=== PATIENT | female | born 1975 | race Caucasian/White ===

== ENCOUNTER 2018-03-11 22:45 | Emergency (ER) | payer BC ==
[2018-03-11] MEDS ORDERED: HYDROCODONE/APAP 5/325 MG TAB ONE (23:56)
--- NOTE | 2018-03-12 01:25 | ER ---
Nurse's Notes [facility] Name: Kimmy Hernandez Age: 42 yrs Sex: Female : 1975 Arrival Date: 03/11/2018 Time: 22:45 Bed 15 Private MD: Diagnosis: Achilles tendinitis, right leg Presentation: 03/11 22:59 Presenting complaint: Patient states: "I fell down 4 steps of stairs this morning and I bs1 heard my right ankle pop, and my lower back hurts.". Transition of care: patient was not received from another setting of care. Onset of symptoms was March 11, 2018. Risk Assessment: Do you want to hurt yourself or someone else? Patient reports no desire to harm self or others. Initial Sepsis Screen: Does the patient meet any 2 criteria? No. Patient's initial sepsis screen is negative. Does the patient have a suspected source of infection? No. Patient's initial sepsis screen is negative. Care prior to arrival: None. 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 - Social history:: Smoking status: Patient/guardian denies using tobacco. - Ebola Screening: : Patient negative for fever greater than or equal to 101.5 degrees Fahrenheit, and additional compatible Ebola Virus Disease symptoms Patient denies exposure to infectious person. - Family history:: not pertinent. - Hospitalizations: : No recent hospitalization is reported. - History obtained from: daughter. Screenin:34 Abuse screen: Denies threats or abuse. Denies injuries from another. Nutritional bs1 screening: No deficits noted. Tuberculosis screening: No symptoms or risk factors identified. Fall Risk None identified. Assessment: 23:00 General: Appears in no apparent distress. uncomfortable, Behavior is calm, cooperative, bs1 appropriate for age. Pain: Complains of pain in right ankle, lower back. Neuro: Level of Consciousness is awake, alert, obeys commands, Oriented to person, place, time, situation, Appropriate for age. Cardiovascular: Denies chest pain, shortness of breath, Heart tones S1 S2 present Capillary refill < 3 seconds Patient's skin is warm and dry. Respiratory: Airway is patent Trachea midline Respiratory effort is even, unlabored, Respiratory pattern is regular, symmetrical, Breath sounds are clear bilaterally. GI: No signs and/or symptoms were reported involving the gastrointestinal system. : No signs and/or symptoms were reported regarding the genitourinary system. EENT: No signs and/or symptoms were reported regarding the EENT system. Derm: Skin is intact, Skin is pink, warm \\T\\ dry. normal. Musculoskeletal: Circulation, motion, and sensation intact. Capillary refill < 3 seconds, Range of motion: limited in right foot/ankle Reports pain in right fot/ankle/lower back. 03/12 00:30 Reassessment: Patient appears in no apparent distress at this time. Patient and/or bs1 family updated on plan of care and expected duration. Pain level reassessed. Patient is alert, oriented x 3, equal unlabored respirations, skin warm/dry/pink. Updated patient on POC/pending xray results. 01:40 Reassessment: Patient appears in no apparent distress at this time. Patient and/or bs1 family updated on plan of care and expected duration. Pain level reassessed. Patient is alert, oriented x 3, equal unlabored respirations, skin warm/dry/pink. Informed patient of discharge instructions and to follow up with ortho. Patient states understanding of DC instructions. Neurovascular checks wnl post splint Patient states symptoms have improved. Vital Signs: 03/11 23:02 BP 145 / 77; Pulse 68; Resp 17; Temp 99.2(O); Pulse Ox 98% on R/A; Weight 101.15 kg; bs1 Height 5 ft. 3 in. (160.02 cm); Pain 510; 03/12 00:00 BP 125 / 64; Pulse 88; Resp 16 S; Pulse Ox 96% on R/A; bs1 00:45 BP 123 / 81; Pulse 81; Resp 16 S; Pulse Ox 96% on R/A; bs1 01:40 BP 125 / 78; Pulse 76; Resp 16; Temp 98; Pulse Ox 100% on R/A; Pain 3/10; bs1 03/11 23:02 Body Mass Index 39.50 (101.15 kg, 160.02 cm) bs1 ED Course: 03/11 22:45 Patient arrived in ED. 22:53 Merlene Rob, RN is Primary Nurse. bs1 23:01 Triage completed. bs1 23:05 Tri Bryan FNP is PHCP. kav 23:05 Triston Beck MD is Attending Physician. kav 23:27 X-ray completed. Portable x-ray completed in exam room. Patient tolerated procedure kw well. 23:28 Ankle Right 3 View XRAY In Process Unspecified. EDMS 23:33 Patient has correct armband on for positive identification. Bed in low position. Call bs1 light in reach. Side rails up X 1. Pulse ox on. NIBP on. 23:34 Arm band placed on right wrist. bs1 23:34 No provider procedures requiring assistance completed. bs1 03/12 01:32 Crutch training done. Orthoglass splint: Posterior long leg splint applied on right leg.oe 01:46 Patient did not have IV access during this emergency room visit. bs1 Administered Medications: 03/11 23:53 Drug: [place] 5 mg-325 mg 1 tabs Route: PO; bs1 03/12 00:51 Follow up: Response: No adverse reaction bs1 Outcome: 01:24 Discharge ordered by . ka 01:45 Discharged to home via wheelchair, with crutches. bs1 01:45 Condition: stable 01:45 Discharge instructions given to patient, Instructed on discharge instructions, follow up and referral plans. medication usage, Demonstrated understanding of instructions, follow-up care, medications, Prescriptions given X 2. 01:49 Patient left the ED. bs1 Signatures: Dispatcher [employer] EDGA Tri Bryan FNP GLASS BULB SILVERERBrittni Small Kimberlee kw Espinosa, [place] Merlene Rob, RN RN bs1 Corrections: (The following items were deleted from the chart) 01:48 01:30 Reassessment: Patient appears in no apparent distress at this time. Patient bs1 and/or family updated on plan of care and expected duration. Pain level reassessed. Patient is alert, oriented x 3, equal unlabored respirations, skin warm/dry/pink. Informed patient of discharge instructions and to follow up with ortho. Patient states understanding of DC instructions Patient states symptoms have improved. bs1
--- NOTE | 2018-03-12 01:25 | EDPHYS ---
Physician Documentation [facility] Name: Kimmy Hernandez Age: 42 yrs Sex: Female : 1975 Arrival Date: 03/11/2018 Time: 22:45 Bed 15 Private MD: ED Physician Triston Beck HPI: 03/11 23:05 This 42 yrs old Female presents to ER via Wheelchair with complaints of Ankle kav Injury, Back Injury. 23:49 The patient presents with pain, that is acute. The complaints affect the right ankle, kav right Achilles. Onset: The symptoms/episode began/occurred acutely, this morning. Context: The mechanism of injury involved eversion of the affected ankle. The patient is unable to bear weight. The patient is not able to ambulate. Associated signs and symptoms: Pertinent positives: swelling, of the right Achilles. Modifying factors: The symptoms are alleviated by elevation of extremity, ice packs, OTC meds, the symptoms are aggravated by movement. Severity of symptoms: At their worst the symptoms were moderate, just prior to arrival. The patient has not experienced similar symptoms in the past. The patient has not recently seen a physician. Patient reports tripping over cat and mis-step down 4 stairs steps. She reports that she heard the right ankle pop.. 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 - Social history:: Smoking status: Patient/guardian denies using tobacco. - Ebola Screening: : Patient negative for fever greater than or equal to 101.5 degrees Fahrenheit, and additional compatible Ebola Virus Disease symptoms Patient denies exposure to infectious person. - Family history:: not pertinent. - Hospitalizations: : No recent hospitalization is reported. - History obtained from: daughter. ROS: 23:52 Constitutional: Negative for fever, chills, and weight loss, Eyes: Negative for injury, kav pain, redness, and discharge, ENT: Negative for injury, pain, and discharge, Neck: Negative for injury, pain, and swelling, Cardiovascular: Negative for chest pain, palpitations, and edema, Respiratory: Negative for shortness of breath, cough, wheezing, and pleuritic chest pain, Abdomen/GI: Negative for abdominal pain, nausea, vomiting, diarrhea, and constipation, Back: Negative for injury and pain, : Negative for injury, bleeding, discharge, and swelling, Skin: Negative for injury, rash, and discoloration, Neuro: Negative for headache, weakness, numbness, tingling, and seizure, Psych: Negative for depression, anxiety, suicide ideation, homicidal ideation, and hallucinations, Allergy/Immunology: Negative for hives, rash, and allergies, Endocrine: Negative for neck swelling, polydipsia, polyuria, polyphagia, and marked weight changes, Hematologic/Lymphatic: Negative for swollen nodes, abnormal bleeding, and unusual bruising. 23:52 MS/extremity: Positive for pain, swelling, of the right Achilles. Exam: 23:52 Constitutional: This is a well developed, well nourished patient who is awake, alert, kav and in no acute distress. Head/Face: Normocephalic, atraumatic. Eyes: Pupils equal round and reactive to light, extra-ocular motions intact. Lids and lashes normal. Conjunctiva and sclera are non-icteric and not injected. Cornea within normal limits. Periorbital areas with no swelling, redness, or edema. ENT: Nares patent. No nasal discharge, no septal abnormalities noted. Tympanic membranes are normal and external auditory canals are clear. Oropharynx with no redness, swelling, or masses, exudates, or evidence of obstruction, uvula midline. Mucous membranes moist. Neck: Trachea midline, no thyromegaly or masses palpated, and no cervical lymphadenopathy. Supple, full range of motion without nuchal rigidity, or vertebral point tenderness. No Meningismus. Chest/axilla: Normal chest wall appearance and motion. Nontender with no deformity. No lesions are appreciated. Cardiovascular: Regular rate and rhythm with a normal S1 and S2. No gallops, murmurs, or rubs. Normal PMI, no JVD. No pulse deficits. Respiratory: Lungs have equal breath sounds bilaterally, clear to auscultation and percussion. No rales, rhonchi or wheezes noted. No increased work of breathing, no retractions or nasal flaring. Abdomen/GI: Soft, non-tender, with normal bowel sounds. No distension or tympany. No guarding or rebound. No evidence of tenderness throughout. Back: No spinal tenderness. No costovertebral tenderness. Full range of motion. Skin: Warm, dry with normal turgor. Normal color with no rashes, no lesions, and no evidence of cellulitis. Neuro: Awake and alert, GCS 15, oriented to person, place, time, and situation. Cranial nerves II-XII grossly intact. Motor strength 5/5 in all extremities. Sensory grossly intact. Cerebellar exam normal. Normal gait. Psych: Awake, alert, with orientation to person, place and time. Behavior, mood, and affect are within normal limits. 23:52 Musculoskeletal/extremity: Extremities: noted in the right Achilles: abrasion, pain, ROM: limited active range of motion, in the right Achilles, limited passive range of motion, in the , Circulation is intact in all extremities. Pulses: noted to be 2+ in the right posterior tibial artery and right dorsalis pedis artery, Sensation intact. Joints: the right ankle displays limited range of motion, pain at rest, Tendon exam: specific tendon testing normal through active and passive range of motion Vital Signs: 23:02 BP 145 / 77; Pulse 68; Resp 17; Temp 99.2(O); Pulse Ox 98% on R/A; Weight 101.15 kg; bs1 Height 5 ft. 3 in. (160.02 cm); Pain 5/10; 08 00:00 BP 125 / 64; Pulse 88; Resp 16 S; Pulse Ox 96% on R/A; bs1 00:45 BP 123 / 81; Pulse 81; Resp 16 S; Pulse Ox 96% on R/A; bs1 01:40 BP 125 / 78; Pulse 76; Resp 16; Temp 98; Pulse Ox 100% on R/A; Pain 3/10; bs1 03/11 23:02 Body Mass Index 39.50 (101.15 kg, 160.02 cm) bs1 MDM: 03/11 23:52 Data reviewed: vital signs, nurses notes, radiologic studies, plain films. [facility] 23:58 Medical screening is not applicable. [facility] 03/11 23:06 Order name: Ankle Right 3 View XRAY [facility] 03/11 23:58 Order name: Balwinder wrap-joint; Complete Time: 01:48 [facility] 03/11 23:58 Order name: Crutches; Complete Time: 01:48 kav 03/12 01:23 Order name: Posterior Leg Splint; Complete Time: 01:48 kav Administered Medications: 23:53 Drug: [place] 5 mg-325 mg 1 tabs Route: PO; bs1 03/12 00:51 Follow up: Response: No adverse reaction bs1 Disposition: 02:15 Co-signature as Attending Physician, Triston Beck MD. pkl Disposition: 03/12/18 01:24 Discharged to Home. Impression: Achilles tendinitis, right leg. - Condition is Stable. - Discharge Instructions: Achilles Tendinitis, Heat Therapy, [id number], Form - Excuse from Work, School, or Physical Activity. - Prescriptions for Tylenol- Codeine #3 300-30 mg Oral Tablet - take 2 tablets by ORAL route every 6 hours As needed; 20 tablet. Ibuprofen 800 mg Oral Tablet - take 1 tablet by ORAL route every 8 hours As needed take with food; 30 tablet. - Work release form, Medication Reconciliation Form, Thank You Letter form. - Follow up: Private Physician; When: 5 - 6 days; Reason: If symptoms return, Recheck today's complaints, Continuance of care, Re-evaluation by your physician. - Problem is new. - Symptoms have improved. Signatures: Dispatcher [employer] EDTriston Vela MD MD pkl Vern, Katherine, RESIDENTIAL SUPPORT SPECIALIST RESIDENTIAL SUPPORT SPECIALIST Merlene Bryant, RN RN bs1 Corrections: (The following items were deleted from the chart) 01:49 01:24 03/12/2018 01:24 Discharged to Home. Impression: Achilles tendinitis, right leg. bs1 Condition is Stable. Prescriptions for Tylenol-Codeine #3 300-30 mg Oral Tablet - take 2 tablets by ORAL route every 6 hours As needed; 20 tablet. and Forms are Work release form, Medication Reconciliation Form, Thank You Letter, Antibiotic Education, Prescription Opioid Use. Follow up: Private Physician; When: 5 - 6 days; Reason: If symptoms return, Recheck today's complaints, Continuance of care, Re-evaluation by your physician. Problem is new. Symptoms have improved. kav
--- NOTE | 2018-03-12 08:02 | RAD REPORT ---
EXAM DESCRIPTION: RAD - Ankle Right 3 View - 03/11/2018 11:28 pm CLINICAL HISTORY: Right ankle pain status post fall FINDINGS: Small bony density lies along the distal aspect of the medial malleolus. This may represen t an acute avulsed fracture fragment, chronic fragment or an ossicle. Clinical correlation is needed see if patient has point tenderness in this region to suggest an acute fracture. No dislocation is seen
== END 2018-03-12 01:49 | disposition home or self-care (01) ==
LOC: ER 22:45
DX: M76.61 Achilles tendinitis, right leg (principal); W18.09XA Striking against other object with subsequent fall, initial encounter; Y93.89 Activity, other specified; Y92.009 Unspecified place in unspecified non-institutional (private) residence as the place of occurrence of the external cause
CPT/HCPCS: 99284

== ENCOUNTER 2018-08-19 12:29 | Emergency (ER) | payer BC ==
--- NOTE | 2018-08-19 14:31 | ER ---
Nurse's Notes [facility] Name: Kimmy Hernandez Age: 43 yrs Sex: Female : 1975 Arrival Date: 08/19/2018 Time: 12:31 Bed 14 Private MD: Diagnosis: Muscle spasm of back Presentation: 08/19 12:34 Presenting complaint: Right sided neck pain that radiates to right shoulder and right hb mid back x 2 days. Transition of care: patient was not received from another setting of care. Onset of symptoms was August 18, 2018. Risk Assessment: Do you want to hurt yourself or someone else? Patient reports no desire to harm self or others. Initial Sepsis Screen: Does the patient meet any 2 criteria? No. Patient's initial sepsis screen is negative. Does the patient have a suspected source of infection? No. Patient's initial sepsis screen is negative. Care prior to arrival: None. 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 - Social history:: Smoking status: Patient/guardian denies using tobacco. - Ebola Screening: : No symptoms or risks identified at this time. Screenin:40 Abuse screen: Denies threats or abuse. Nutritional screening: No deficits noted. rb1 Tuberculosis screening: No symptoms or risk factors identified. Fall Risk None identified. Assessment: 13:40 General: Appears in no apparent distress. comfortable, Behavior is calm, cooperative, rb1 Denies fever. Pain: Complains of pain in back of neck Pain radiates to right scapular area Pain currently is 7 out of 10 on a pain scale. Pain began 2-3 days ago. Neuro: Level of Consciousness is awake, alert, obeys commands, Oriented to person, place, time, situation, Denies numbness. Neuro: Reports dizziness. Cardiovascular: Capillary refill < 3 seconds is brisk in bilateral fingers. Respiratory: Airway is patent Respiratory effort is even, unlabored, Respiratory pattern is regular, symmetrical. GI: No signs and/or symptoms were reported involving the gastrointestinal system. : No signs and/or symptoms were reported regarding the genitourinary system. Derm: Skin is pink, warm \T\ dry. Vital Signs: 12:37 BP 134 / 86; Pulse 82; Resp 18; Temp 98.2; Pulse Ox 100% on R/A; Pain 7/10; hb 13:30 BP 136 / 94; Pulse 73; Resp 17; Pulse Ox 100% on R/A; rb1 14:30 BP 137 / 92; Pulse 70; Resp 19; Pulse Ox 100% on R/A; rb1 ED Course: 12:31 Patient arrived in ED. rg4 12:37 Triage completed. hb 12:37 Arm band placed on right wrist. EKG completed in triage. Results shown to MD. hb 13:40 Patient has correct armband on for positive identification. Bed in low position. Call rb1 light in reach. Side rails up X 1. Pulse ox on. NIBP on. 13:[address] PA is PHCP. [facility] 13:41 Willian Roland MD is Attending Physician. [facility] 13:46 Chloé Levy, RN is Primary Nurse. rb1 15:00 No provider procedures requiring assistance completed. Patient did not have IV access rb1 during this emergency room visit. Administered Medications: No medications were administered Outcome: 14:31 Discharge ordered by MD. [facility] 15:00 Discharged to home ambulatory. rb1 15:00 Condition: stable 15:00 Discharge instructions given to patient, Instructed on discharge instructions, follow up and referral plans. medication usage, Demonstrated understanding of instructions, follow-up care, medications, Prescriptions given X 2. 15:01 Patient left the ED. [facility] Signatures: Brady Lane PA PA [facility] Chloé Levy, RN RN rb1 Samia Kaur, Gaye Massey RN rg4
--- NOTE | 2018-08-19 14:31 | EDPHYS ---
Physician Documentation [facility] Name: Kimmy Hernandez Age: 43 yrs Sex: Female : 1975 Arrival Date: 08/19/2018 Time: 12:31 Bed 14 Private MD: ED Physician Willian Roland HPI: 08/19 14:20 This 43 yrs old Female presents to ER via Ambulatory with complaints of Neck jmm Pain, <24hrs Old, Back Pain. 14:20 The patient or guardian complains of pain. The symptoms are located on the right jmm scapular area. Onset: The symptoms/episode began/occurred gradually, 2 day(s) ago. Context: The neck injury/problem resulted from from unknown cause. Associated signs and symptoms: Pertinent negatives: numbness, tingling, weakness. The pain radiates to the right arm. Modifying factors: The symptoms are alleviated by remaining still, the symptoms are aggravated by movement. This is a 43 year old female that presents to the ED with pain to the neck beginning upon awakening 2 days ago. Symptoms initially began on the right upper back. Patient states pain radiates down the right arm. 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 Patient denies fever, slurred speech, weakness, or any acute injury. . 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 - Social history:: Smoking status: Patient/guardian denies using tobacco. - Ebola Screening: : No symptoms or risks identified at this time. ROS: 14:20 Constitutional: Negative for fever, chills, and weight loss. jmm 14:20 Cardiovascular: Negative for chest pain, palpitations, and edema, Respiratory: Negative for shortness of breath, cough, wheezing, and pleuritic chest pain. 14:20 Neck: Positive for pain with movement. 14:20 Neuro: Negative for loss of consciousness, speech changes, weakness. 14:20 All other systems are negative. Exam: 14:20 Constitutional: This is a well developed, well nourished patient who is awake, alert, jmm and in no acute distress. Head/Face: atraumatic. Eyes: EOMI, no conjunctival erythema appreciated ENT: Moist Mucus Membranes 14:20 Chest/axilla: Normal chest wall appearance and motion. Cardiovascular: Regular rate and rhythm. No edema appreciated Respiratory: Normal respirations, no respiratory distress appreciated 14:20 Neck: right upper back pain on palpation, pain is reproduced. 14:20 Musculoskeletal/extremity: full demonstrator knitting strength appreciated to the right hand, normal finger jerk reflex. . 14:20 Skin: Appearance: Color: normal in color. 14:20 Neuro: Orientation: is normal, Mentation: is normal, Memory: is normal, Gait: is steady. 14:20 Psych: Behavior/mood is pleasant, cooperative. Vital Signs: 12:37 BP 134 / 86; Pulse 82; Resp 18; Temp 98.2; Pulse Ox 100% on R/A; Pain 7/10; hb 13:30 BP 136 / 94; Pulse 73; Resp 17; Pulse Ox 100% on R/A; rb1 14:30 BP 137 / 92; Pulse 70; Resp 19; Pulse Ox 100% on R/A; rb1 MDM: 14:10 Patient medically screened. [facility] 14:24 Differential diagnosis: cervical strain, muscle spasm, cervical radiculopathy. Data [facility] reviewed: vital signs, nurses notes. Counseling: I had a detailed discussion with the patient and/or guardian regarding: the historical points, exam findings, and any diagnostic results supporting the discharge/admit diagnosis, the need for outpatient follow up, to return to the emergency department if symptoms worsen or persist or if there are any questions or concerns that arise at home. ED course: Patient is alert and non toxic in appearance, patient is afebrile. I do not suspect meningitis. Patient does not have signs of ams, unilateral weakness, chest pain. VS WNL. I do not suspect carotid/aortic dissection. Symptoms appear most likely musculoskeletal. Patient given strict return precautions. Patient understood and agrees with the plan of care. . Administered Medications: No medications were administered Disposition: 08/19/18 14:31 Discharged to Home. Impression: Muscle spasm of back. - Condition is Stable. - Discharge Instructions: Muscle Cramps and Spasms. - Prescriptions for Ibuprofen 800 mg Oral Tablet - take 1 tablet by ORAL route every 12 hours As needed take with food; 20 tablet. orphenadrine citrate 100 mg Oral Tablet Sustained Release - take 1 tablet by ORAL route 2 times per day As needed; 20 tablet. - Medication Reconciliation Form, Thank You Letter, Antibiotic Education, Prescription Opioid Use, Work release form form. - Follow up: Private Physician; When: 2 - 3 days; Reason: Recheck today's complaints, Continuance of care, Re-evaluation by your physician. Addendum: 08/26/2018 09:21 Co-signature as Attending Physician, Willian Roland MD I agree with the assessment and k dr plan of care. Signatures: Willian Roland MD MD [facility] Brady [address] PA PA jmm Barber, Rebecca, RN RN rb1 Samia Kaur RN RN Corrections: (The following items were deleted from the chart) 08/19 15:01 14:31 08/19/2018 14:31 Discharged to Home. Impression: Muscle spasm of back. Condition rb1 is Stable. Forms are Medication Reconciliation Form, Thank You Letter, Antibiotic Education, Prescription Opioid Use. Follow up: Private Physician; When: 2 - 3 days; Reason: Recheck today's complaints, Continuance of care, Re-evaluation by your physician. ermelinda
== END 2018-08-19 15:01 | disposition home or self-care (01) ==
LOC: ER 12:29
DX: M62.830 Muscle spasm of back (principal)

== ENCOUNTER 2020-06-25 15:01 | Observation (INO) | payer BC ==
[2020-06-25 16:41] LABS: Absolute Lymphocytes (CBC) 2.8 K/uL (0.7-4.9); Hematocrit 40.8 % (36.0-45.0); Lymphocytes % 30.1 % (15.3-44.8); MPV 8.6 fL (7.6-11.3); RBC Red Blood Cell Count 4.58 M/uL (3.86-4.86)
[2020-06-25] MEDS ORDERED: PROMETHAZINE INJ 25 MG/ML AMP ONE (16:55)
[2020-06-25] MEDS ORDERED: NA CHLORIDE 0.9% 1,000 ML ONE (16:55)
[2020-06-25 17:07] LABS: ALT/SGPT 19 U/L (12-78); AST/SGOT 18 U/L (15-37); Albumin 3.6 g/dL (3.4-5.0); Alkaline Phosphatase 60 U/L (45-117); BUN Blood Urea Nitrogen 12 mg/dL (7-18); Bicarbonate 26 mmol/L (21-32); Bilirubin Direct < 0.1 mg/dL (0-0.2); Bilirubin Total 0.4 mg/dL (0.2-1.0); Glucose Level 84 mg/dL (74-106); Lipase 878 U/L (73-393); Potassium 3.5 mmol/L (3.5-5.1); Protein, Total 8.2 g/dL (6.4-8.2); Sodium Level 138 mmol/L (136-145)
[2020-06-25 17:13] LABS: Urine Blood TRACE (NEG); Urine Glucose NEGATIVE (NEG); Urine Protein NEGATIVE (NEG); Urine Specific Gravity 1.015 (1.005-1.030)
[2020-06-25 17:40] LABS: Urine Bacteria >50 /HPF (<20); Urine Mucus 2+ /HPF (NONE SEEN)
--- NOTE | 2020-06-25 18:17 | EDPHYS ---
Physician Documentation [facility] Name: Kimmy Hernandez Age: 45 yrs Sex: Female : 1975 Arrival Date: 06/25/2020 Time: 15:02 Bed 17 Private MD: DIMAS Physician Joshua Cassidy HPI: 06/25 16:26 This 45 yrs old Female presents to ER via Ambulatory with complaints of snw Abdominal Pain, Mouth Swelling, Headache. 16:26 The patient presents with N/V/D. Onset: The symptoms/episode began/occurred gradually, snw 1.5 week(s) ago, and became persistent. The symptoms do not radiate. Associated signs and symptoms: Pertinent positives: left arm pain, denies chest pain, N/V/D, fever. The symptoms are described as achy, crampy. Severity of pain: At its worst the pain was moderate severe. The patient has not experienced similar symptoms in the past, but family has similar symptoms, daughter. The patient has not recently seen a physician. Daughter had similar s/s x 2 weeks one week ago. Daughter tested negative for CoVid 19. 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 - Social history:: Smoking status: Patient reports the use of cigarette tobacco products, smokes one-half pack cigarettes per day. ROS: 16:22 Eyes: Negative for injury, pain, redness, and discharge. snw 16:22 Neck: Negative for injury, pain, and swelling, Cardiovascular: Negative for chest pain, palpitations, and edema, Respiratory: Negative for shortness of breath, cough, wheezing, and pleuritic chest pain. 16:22 Back: Negative for injury and pain, : Negative for injury, bleeding, discharge, and swelling, Skin: Negative for injury, rash, and discoloration, Neuro: Negative for headache, weakness, numbness, tingling, and seizure, Psych: Negative for depression, anxiety, suicide ideation, homicidal ideation, and hallucinations. 16:22 Constitutional: Positive for body aches, fatigue, fever, poor PO intake. 16:22 ENT: Positive for blisters to roof of mouth. 16:22 Abdomen/GI: Positive for nausea, vomiting, and diarrhea. 16:22 MS/extremity: Positive for pain, of the left arm, lightning strike type "phantom pain". Exam: 16:22 Constitutional: This is a well developed, well nourished patient who is awake, alert, snw and in no acute distress. Head/Face: Normocephalic, atraumatic. Eyes: Pupils equal round and reactive to light, extra-ocular motions intact. Lids and lashes normal. Conjunctiva and sclera are non-icteric and not injected. Cornea within normal limits. Periorbital areas with no swelling, redness, or edema. 16:22 Neck: Trachea midline, no thyromegaly or masses palpated, and no cervical lymphadenopathy. Supple, full range of motion without nuchal rigidity, or vertebral point tenderness. No Meningismus. Chest/axilla: Normal chest wall appearance and motion. Nontender with no deformity. No lesions are appreciated. Cardiovascular: Regular rate and rhythm with a normal S1 and S2. No gallops, murmurs, or rubs. Normal PMI, no JVD. No pulse deficits. Respiratory: Lungs have equal breath sounds bilaterally, clear to auscultation and percussion. No rales, rhonchi or wheezes noted. No increased work of breathing, no retractions or nasal flaring. Abdomen/GI: Soft, non-tender, with normal bowel sounds. No distension or tympany. No guarding or rebound. No evidence of tenderness throughout. Back: No spinal tenderness. No costovertebral tenderness. Full range of motion. Skin: Warm, dry with normal turgor. Normal color with no rashes, no lesions, and no evidence of cellulitis. MS/ Extremity: Pulses equal, no cyanosis. Neurovascular intact. Full, normal range of motion. Neuro: Awake and alert, GCS 15, oriented to person, place, time, and situation. Cranial nerves II-XII grossly intact. Motor strength 5/5 in all extremities. Sensory grossly intact. Cerebellar exam normal. Normal gait. Psych: Awake, alert, with orientation to person, place and time. Behavior, mood, and affect are within normal limits. 16:22 ENT: Mouth: Oral mucosa: noted to have obvious stomatitis, Gums: normal with healthy appearance, Tongue: is normal, Posterior pharynx: no acute changes, Dental exam: normal, Voice: is normal. Vital Signs: 15:14 BP 131 / 86; Pulse 85; Resp 16; Temp 98.3; Pulse Ox 100% on R/A; Weight 100.7 kg; iw Height 5 ft. 4 in. (162.56 cm); Pain 6/10; 16:54 BP 123 / 76; Pulse 56; Resp 16; Pulse Ox 100% on R/A; ph 18:00 BP 132 / 80; Pulse 58; Resp 18; Pulse Ox 99% ; ph 19:15 BP 145 / 85; Pulse 58; Resp 17 S; Pulse Ox 100% on R/A; ca1 20:15 BP 117 / 77; Pulse 64; Resp 15 S; Pulse Ox 100% on R/A; ca1 20:55 BP 128 / 62; Pulse 77; Resp 15 S; Pulse Ox 100% on R/A; ca1 21:14 BP 141 / 84; Pulse 77; Resp 16 S; Pulse Ox 100% on R/A; ca1 15:14 Body Mass Index 38.11 (100.70 kg, 162.56 cm) iw MDM: 15:25 Patient medically screened. berna 18:14 Data reviewed: vital signs, nurses notes. Data interpreted: Pulse oximetry: on room air snw is 100 %. Interpretation: normal. Counseling: I had a detailed discussion with the patient and/or guardian regarding: the historical points, exam findings, and any diagnostic results supporting the discharge/admit diagnosis, lab results, radiology results, the need for further work-up and treatment in the hospital. Physician consultation: Hernan ALMANZA was called at 18:14, was contacted at 18:14, regarding admission, to the telemetry unit. would like admission per Dr. Higinio Mariano MD. 06/25 16:13 Order name: Basic Metabolic Panel; Complete Time: 17:10 snw 06/25 16:13 Order name: CBC with Diff; Complete Time: 16:47 snw 06/25 16:13 Order name: Hepatic Function; Complete Time: 17:10 snw 06/25 16:13 Order name: Lipase; Complete Time: 17:10 snw 06/25 16:13 Order name: Urine Culture snw 06/25 16:13 Order name: Urine Microscopic Only; Complete Time: 17:46 snw 06/25 17:01 Order name: Urine Dipstick--Ancillary (enter results); Complete Time: 17:15 bd 06/25 17:15 Order name: CT Abd/Pelvis - PO and IV Contrast snw 06/25 17:16 Order name: Lipid Profile; Complete Time: 17:35 bd 06/25 19:54 Order name: SARS-COV-2 RT PCR; Complete Time: 20:08 EDMS 06/25 20:22 Order name: CT; Complete Time: 20:23 EDMS 06/25 16:13 Order name: IV Saline Lock; Complete Time: 16:33 snw 06/25 16:13 Order name: Labs collected and sent; Complete Time: 16:33 snw 06/25 16:13 Order name: Urine Dipstick-Ancillary (obtain specimen); Complete Time: 16:52 snw Administered Medications: 16:59 Drug: NS 0.9% 1000 ml Route: IV; Rate: 1 bolus; Site: left antecubital; ph 19:31 Follow up: Response: No adverse reaction; IV Status: Completed infusion; IV Intake: ph 1000ml 16:59 Drug: Phenergan 12.5 mg Route: IVP; Site: left antecubital; ph 19:31 Follow up: Response: No adverse reaction; Nausea is decreased ph 19:26 Drug: LevaQUIN 750 mg Volume: 150 ml; Route: IVPB; Infused Over: 90 mins; Site: left ca1 antecubital; 20:30 Follow up: Response: No adverse reaction; IV Status: Completed infusion ca1 Disposition: 06/26 09:22 Co-signature as Attending Physician, Joshua Cassidy MD I agree with the assessment and [facility] plan of care. Disposition: 06/25/20 18:16 Hospitalization ordered by Higinio Mariano for Observation. Preliminary diagnosis are Acute pancreatitis, unspecified, Urinary tract infection, site not specified. - Bed requested for Telemetry/MedSurg (observation). - Status is Observation. ca1 - Condition is Stable. - Problem is new. - Symptoms have improved. Signatures: Dispatcher [employer] [facility] Joshua Cassidy MD MD cha Waters, Shelly, TILER-C TILER-Csnw Karla Brooks RN JANETH Iqra Garrison RN RN ph Acbirgit, JANETH Cates RN ca1 Sunshine, Miguel tt3 Corrections: (The following items were deleted from the chart) 06/25 18:48 16:14 CORONAVIRUS+MR.LAB.BRZ ordered. EDMS EDMS 20:45 18:16 Hospitalization Ordered by Higinio Mariano MD for Observation. Preliminary tt3 diagnosis is Acute pancreatitis, unspecified; Urinary tract infection, site not specified. Bed requested for Telemetry/MedSurg (observation). Status is Observation. Condition is Stable. Problem is new. Symptoms have improved. snw 21:29 20:45 06/25/2020 18:16 Hospitalization Ordered by Higinio Mariano MD for Observation. ca1 Preliminary diagnosis is Acute pancreatitis, unspecified; Urinary tract infection, site not specified. Bed requested for Telemetry/MedSurg (observation). Status is Observation. Condition is Stable. Problem is new. Symptoms have improved. tt3
--- NOTE | 2020-06-25 18:17 | ER ---
Nurse's Notes [facility] Name: Kimmy Hernandez Age: 45 yrs Sex: Female : 1975 Arrival Date: 06/25/2020 Time: 15:02 Bed 17 Private MD: Diagnosis: Acute pancreatitis, unspecified;Urinary tract infection, site not specified Presentation: 06/25 15:14 Chief complaint: Patient states: stomach has been hurting for two weeks and is having iw migraines, is also vomiting, yesterday woke up with swelling to top of mouth and her left arm has shooting pain. Coronavirus screen: chills, headache, nausea, vomiting. Client presents with at least one sign or symptom that may indicate coronavirus-19. Standard/surgical mask placed on the client. Provider contacted for isolation considerations. Ebola Screen: Patient negative for fever greater than or equal to 101.5 degrees Fahrenheit, and additional compatible Ebola Virus Disease symptoms Patient denies exposure to infectious person. Patient denies travel to an Ebola-affected area in the 21 days before illness onset. No symptoms or risks identified at this time. Initial Sepsis Screen: Does the patient meet any 2 criteria? No. Patient's initial sepsis screen is negative. Does the patient have a suspected source of infection? No. Patient's initial sepsis screen is negative. Risk Assessment: Do you want to hurt yourself or someone else? Patient reports no desire to harm self or others. Onset of symptoms was June 12, 2020. 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 - Social history:: Smoking status: Patient reports the use of cigarette tobacco products, smokes one-half pack cigarettes per day. Screenin:32 Abuse screen: Denies threats or abuse. Denies injuries from another. Nutritional ph screening: No deficits noted. Tuberculosis screening: No symptoms or risk factors identified. Fall Risk None identified. Assessment: 16:55 General: Appears in no apparent distress. comfortable, well groomed, Behavior is calm, ph cooperative, appropriate for age, Denies fever. Pain: Complains of pain in epigastric area and left arm. Neuro: Level of Consciousness is awake, alert, obeys commands, Oriented to person, place, time, situation. Cardiovascular: Capillary refill < 3 seconds in bilateral fingers Patient's skin is warm and dry. Respiratory: Airway is patent Respiratory effort is even, unlabored, Respiratory pattern is regular, symmetrical, Denies cough, shortness of breath. GI: Abdomen is round non-distended, Reports upper abdominal pain, nausea, vomiting. Derm: Skin is intact, Skin is pink, warm \T\ dry. Musculoskeletal: Circulation, motion, and sensation intact. Range of motion: intact in all extremities. 18:00 Reassessment: Patient appears in no apparent distress at this time. Patient and/or ph family updated on plan of care and expected duration. Pain level reassessed. Patient is alert, oriented x 3, equal unlabored respirations, skin warm/dry/pink. Pt reports that nausea has improved after IV meds. 19:15 Reassessment: Patient appears in no apparent distress at this time. Patient and/or ca1 family updated on plan of care and expected duration. Pain level reassessed. Patient is alert, oriented x 3, equal unlabored respirations, skin warm/dry/pink. 20:15 Reassessment: Patient appears in no apparent distress at this time. Patient and/or ca1 family updated on plan of care and expected duration. Pain level reassessed. Patient is alert, oriented x 3, equal unlabored respirations, skin warm/dry/pink. 20:53 Reassessment: Patient appears in no apparent distress at this time. Patient is alert, ca1 oriented x 3, equal unlabored respirations, skin warm/dry/pink. 20:53 GI: ca1 20:54 Reassessment: Called for report, nurse will call back. ca1 21:14 Reassessment: Patient appears in no apparent distress at this time. Patient is alert, ca1 oriented x 3, equal unlabored respirations, skin warm/dry/pink. Vital Signs: 15:14 BP 131 / 86; Pulse 85; Resp 16; Temp 98.3; Pulse Ox 100% on R/A; Weight 100.7 kg; iw Height 5 ft. 4 in. (162.56 cm); Pain 6/10; 16:54 BP 123 / 76; Pulse 56; Resp 16; Pulse Ox 100% on R/A; ph 18:00 BP 132 / 80; Pulse 58; Resp 18; Pulse Ox 99% ; ph 19:15 BP 145 / 85; Pulse 58; Resp 17 S; Pulse Ox 100% on R/A; ca1 20:15 BP 117 / 77; Pulse 64; Resp 15 S; Pulse Ox 100% on R/A; ca1 20:55 BP 128 / 62; Pulse 77; Resp 15 S; Pulse Ox 100% on R/A; ca1 21:14 BP 141 / 84; Pulse 77; Resp 16 S; Pulse Ox 100% on R/A; ca1 15:14 Body Mass Index 38.11 (100.70 kg, 162.56 cm) iw ED Course: 15:02 Patient arrived in ED. as 15:16 Triage completed. iw 15:17 Arm band placed on. iw 15:19 Iqra Arndt, JANETH is Primary Nurse. ph 15:22 Thania Sommers FNP-C is PHCP. snw 15:22 Joshua Cassidy MD is Attending Physician. snw 15:32 Patient has correct armband on for positive identification. Bed in low position. Call ph light in reach. Side rails up X 1. Pulse ox on. NIBP on. Door closed. Noise minimized. 16:33 Inserted saline lock: 20 gauge in left antecubital area, using aseptic technique. Blood mt collected. 18:15 iHginio Mariano MD is Hospitalizing Provider. snw 19:31 No provider procedures requiring assistance completed. Patient admitted, IV remains in ph place. Administered Medications: 16:59 Drug: NS 0.9% 1000 ml Route: IV; Rate: 1 bolus; Site: left antecubital; ph 19:31 Follow up: Response: No adverse reaction; IV Status: Completed infusion; IV Intake: ph 1000ml 16:59 Drug: Phenergan 12.5 mg Route: IVP; Site: left antecubital; ph 19:31 Follow up: Response: No adverse reaction; Nausea is decreased ph 19:26 Drug: LevaQUIN 750 mg Volume: 150 ml; Route: IVPB; Infused Over: 90 mins; Site: left ca1 antecubital; 20:30 Follow up: Response: No adverse reaction; IV Status: Completed infusion ca1 Intake: 19:31 IV: 1000ml; Total: 1000ml. ph Outcome: 18:16 Decision to Hospitalize by Provider. snw 21:15 Admitted to Med/surg accompanied by tech, via wheelchair, room 217, with chart, Report ca1 called to JANETH Boyd 21:15 Condition: stable 21:15 Instructed on the need for admit. 21:29 Patient left the ED. ca1 Signatures: Thania Sommers, DRAIN CLEANER-C DRAIN CLEANER-Kathryn Villela Irene RN RN Iqra Arndt RN RN Javi [facility] Loan Newtno RN RN ca1
--- NOTE | 2020-06-25 19:14 | P.HP ---
Certification for Inpatient Patient admitted to: Observation With expected LOS: <2 Midnights Patient will require the following post-hospital care: None Practitioner: I am a practitioner with admitting privileges, knowledge of patient current condition, hospital course, and medical plan of care. Services: Services provided to patient in accordance with Admission requirements found in Title 42 Section 412.3 of the Code of Federal Regulations <Hernan Trotter - Last Filed: 06/25/20 19:10> Patient History Date of Service: 06/25/20 Primary Care Provider: None Reason for admission: Pancreatitis History of Present Illness: Otherwise healthy 45-year-old female presented to the emergency department for 2 weeks of upper abdominal pain, nausea, vomiting. Patient was evaluated, found to have elevated lipase 878, normal triglyceride levels. Patient does report frequent urination and has greater than 50 bacteria in the urine. ED provider wishes to admit patient for further management. When I saw the patient in the emergency department she is awake, alert, oriented x3. Patient complaining of upper abdominal pain. Patient mildly tender and epigastric and right upper quadrant. Patient is not . Will admit for further evaluation and management. - Past Medical/Surgical History -: none -: none Psychosocial/ Personal History: Patient is currently employed and lives with her family - Family History Family History: Reviewed- Non-Contributory - Social History Smoking Status: Current every day smoker Counseled patient to stop smoking for: less than 10 minutes Smoking therapy provided: No Alcohol use: No CD- Drugs: No Caffeine use: Yes Place of Residence: Home <Hernan Trotter - Last Filed: 06/25/20 19:10> Date of Service: 06/28/20 <Higinio Mariano - Last Filed: 06/28/20 17:25> Allergies penicillin G Allergy (Unknown, Verified 06/25/20 23:19) Rash Review of Systems 10-point ROS is otherwise unremarkable Gastrointestinal: Nausea, Vomiting, Abdominal Pain <Hernan Trotter - Last Filed: 06/25/20 19:10> Physical Examination - Physical Exam General: Alert, In no apparent distress, Oriented x3 HEENT: Atraumatic, Normocephalic Neck: Supple Respiratory: Clear to auscultation bilaterally Cardiovascular: No edema, Normal pulses, Regular rate/rhythm Capillary refill: <2 Seconds Gastrointestinal: Normal bowel sounds, Tenderness (Mild epigastric tenderness, mild right upper quadrant tenderness) Musculoskeletal: No contractures, No erythema, No tenderness Integumentary: No significant lesion, No tenderness/swelling, No erythema Neurological: Normal speech, Normal strength at 5/5 x4 extr, Normal tone, Sensation intact - Studies Laboratory Data (last 24 hrs) 06/25/20 16:30: Triglycerides 114, Cholesterol 206 H, HDL Cholesterol 51, Cholesterol/HDL Ratio 4.04 06/25/20 16:30: WBC 9.4, Hgb 13.5, Hct 40.8, Plt Count 299 06/25/20 16:30: Sodium 138, Potassium 3.5, BUN 12, Creatinine 0.69, Glucose 84, Total Bilirubin 0.4, AST 18, ALT 19, Alkaline Phosphatase 60, Lipase 878 H <Hernan Trotter - Last Filed: 06/25/20 19:10> Assessment and Plan - Plan Assessment Acute pancreatitis Urinary tract infection Plan Acute pancreatitis- NPO except for ice chips. P.r.n. pain and nausea medications. IV fluids overnight. Relatively mild case, could attempt to advance diet as early as tomorrow if she is doing well. DVT prophylaxis Lovenox 40 mg subcutaneous once daily. Urinary tract infection- patient allergy to penicillin, NPO at this time. Continue with Levaquin. Can transition once patient is tolerating p.o.. Discharge Plan: Home Plan to discharge in: 24 Hours - Advance Directives Does patient have a Living Will: No Does patient have a Durable POA for Healthcare: No - Code Status/Comfort Care Code Status Assessed: Yes (Full code) Critical Care: No Time Spent Managing Pts Care (In Minutes): 55 <Hernan Trotter - Last Filed: 06/25/20 19:10> - Plan Plan of care discussed with Hernan Trotter, and I agree with the management plan as noted above. <Higinio Mariano - Last Filed: 06/28/20 17:25>
[2020-06-25] MEDS ORDERED: Levofloxacin 750mg IV 750 MG/150 ML BAG IV ONE (19:35)
--- NOTE | 2020-06-25 20:16 | RAD REPORT ---
EXAM DESCRIPTION: CT - Abdomen Pelvis W Contrast - 06/25/2020 7:43 pm CLINICAL HISTORY: ABD PAIN COMPARISON: <Comparisons> TECHNIQUE: Biphasic, helical CT imaging of the abdomen and pelvis was performed following 100 ml non -ionic IV contrast. Oral contrast was given. All CT scans are performed using dose optimization technique as appropriate and may include automated exposure control or mA/KV adjustment according to patient size. FINDINGS: No suspicious findings in the lung bases. The liver, spleen, and pancreas show no suspicious findings. Gallbladder and biliary tree are also wi thout suspicious finding. Symmetric renal function is seen with no hydronephrosis or suspicious renal mass. No pyelonephritis o r acute parenchymal process. No bladder abnormalities. No adrenal abnormalities. Uterus and ovaries s how no suspicious findings. No dilated bowel loops or bowel wall thickening. No suspicion for appendicitis. No free air, free flu id or inflammatory stranding. No hernia, mass or bulky lymphadenopathy. No suspicious bony findings. IMPRESSION: Contrast enhanced CT abdomen and pelvis showing no significant or suspicious finding.
[2020-06-25] MEDS ORDERED: ONDANSETRON 4 MG/2 ML VIAL IV PRN (21:43)
[2020-06-25] MEDS ORDERED: MORPHINE 2 MG/ML SYR IV PRN (21:43)
[2020-06-25 22:18] VITALS: BMI 36.2
[2020-06-25] MEDS: NA CHLORIDE 0.9% 1,000 ML IV SCH (22:52)
[2020-06-26 03:36] VITALS: O2SAT 100
[2020-06-26 04:18] LABS: Absolute Lymphocytes (CBC) 2.6 K/uL (0.7-4.9); Basophils % 0.5 % (0-1.3); Hematocrit 38.6 % (36.0-45.0); Lymphocytes % 27.3 % (15.3-44.8); MPV 8.8 fL (7.6-11.3)
[2020-06-26 04:42] LABS: Potassium 3.8 mmol/L (3.5-5.1)
[2020-06-26] MEDS ORDERED: KCL 20 MEQ/100 mL IVPB 20 MEQ/100 ML BAG IV SCH (06:00)
[2020-06-26] MEDS ORDERED: ENOXAPARIN 40 MG/0.4 ML SQ SCH (09:00)
[2020-06-26] MEDS: NA CHLORIDE 0.9% 1,000 ML IV SCH (09:03)
[2020-06-26 11:42] VITALS: BP 125/58; TEMP 97
--- NOTE | 2020-06-26 13:57 | P.DS ---
Admission Date: 06/25/20 Discharge Date: 06/26/20 Primary Care Provider: None Disposition: ROUTINE DISCHARGE Discharge Condition: GOOD Reason for Admission: Pancreatitis Procedures: CT abd/pelvis (06/25): Contrast enhanced CT abdomen and pelvis showing no significant or suspicious finding. Problem List Acute Pancreatitis Brief History of Present Illness: 45yo female presented to ED due to 2 weeks of upper abdominal pain, nausea, and vomiting. Found to have elevated lipase of 878, normal triglyceride levels, and no leukocytosis. She was admitted for further management of acute pancreatitis. Hospital Course: Patient was treated with IVF and her diet was advanced as tolerated. On day of discharge, she tolerated a GI soft diet without nausea/vomiting and no worsening of her abdominal pain. She reported 1/10 abdominal discomfort and did not require any pain medication on day of discharge. She was discharged home without any medications. She is to f/u with her PCP within 1 week and instructed to continue a bland diet for ~1 week. Vital Signs/Physical Exam: Temp Pulse Resp BP Pulse Ox 97 F 61 16 125/58 L 98 06/26/20 11:41 06/26/20 11:41 06/26/20 11:41 06/26/20 11:41 06/26/20 11:41 General: Alert, In no apparent distress HEENT: Mucous membr. moist/pink, Sclerae nonicteric Respiratory: Clear to auscultation bilaterally, Normal air movement Cardiovascular: No edema, Regular rate/rhythm Gastrointestinal: Soft and benign, Non-distended, Tenderness (very minimal in epigastrium) Musculoskeletal: No tenderness Integumentary: No rashes Neurological: Normal speech, Normal affect Laboratory Data at Discharge: WBC 9.4 K/uL (4.3-10.9) 06/26/20 03:35 Hgb 12.7 g/dL (12.0-15.0) 06/26/20 03:35 Hct 38.6 % (36.0-45.0) 06/26/20 03:35 Plt Count 267 K/uL (152-406) 06/26/20 03:35 Sodium 140 mmol/L (136-145) 06/26/20 03:35 Potassium 3.8 mmol/L (3.5-5.1) 06/26/20 03:35 BUN 9 mg/dL (7-18) 06/26/20 03:35 Creatinine 0.81 mg/dL (0.55-1.3) 06/26/20 03:35 Glucose 88 mg/dL (74-106) 06/26/20 03:35 Total Bilirubin 0.4 mg/dL (0.2-1.0) 06/25/20 16:30 AST 18 U/L (15-37) 06/25/20 16:30 ALT 19 U/L (12-78) 06/25/20 16:30 Alkaline Phosphatase 60 U/L (45-117) 06/25/20 16:30 Triglycerides 114 mg/dL (<150) 06/25/20 16:30 Cholesterol 206 mg/dL (<200) H 06/25/20 16:30 HDL Cholesterol 51 mg/dL (40-60) 06/25/20 16:30 Cholesterol/HDL Ratio 4.04 06/25/20 16:30 Lipase 144 U/L (73-393) 06/26/20 03:35 Home Medications: NK [No Home Meds] 06/26/20 Patient Discharge Instructions: follow up with PCP within 1 week. Diet: Glynn (for 1 week, avoid greasy foods) Activity: Ad vanessa Followup: MIO LIEBERMAN [Primary Care Provider] - Time spent managing pt's care (in minutes): 35
[2020-06-26] MEDS ORDERED: Levofloxacin500mg IV 500 MG/100 ML BAG IV SCH (18:00)
== END 2020-06-26 14:47 | disposition home or self-care (01) ==
LOC: ER 15:01 → ERHOLD 18:48 → 2ND 21:17
PROVIDERS: ADMIT Hospitalist; ATTEND Hospitalist
DX: K85.90 Acute pancreatitis without necrosis or infection, unspecified (principal); N39.0 Urinary tract infection, site not specified; Z20.828 Contact with and (suspected) exposure to other viral communicable diseases; F17.210 Nicotine dependence, cigarettes, uncomplicated
CPT/HCPCS: 96365; 96361; 87088; 85025 ×2; 87086; 80048 ×2; 36415; 80061; 80076; 83690 ×2; 74177; 96375; 99285; U0003; Q9967; J2550; J3480; J1650; J7030 ×3; J2405; G0378 ×3; 81003; 81015

== ENCOUNTER 2023-12-08 08:09 | Emergency (ER) | payer BC, SELFPAY ==
--- NOTE | 2023-12-08 08:33 | ER ---
Nurse's Notes [facility] Name: Kimmy Hernandez Age: 48 yrs Sex: Female : 1975 Arrival Date: 12/08/2023 Time: 08:09 Bed DX3 Private MD: Diagnosis: Cellulitis of back [any part except buttock] Presentation: 12/07 08:25 Chief complaint: Patient states: she started feeling like she was getting a small ap3 pimple on her lower back, that has gotten bigger over the last week. patient reports the area is tender to the touch. Coronavirus screen: At this time, the client does not indicate any symptoms associated with coronavirus-19. Ebola Screen: No symptoms or risks identified at this time. Initial Sepsis Screen: Does the patient meet any 2 criteria? No. Patient's initial sepsis screen is negative. Does the patient have a suspected source of infection? No. Patient's initial sepsis screen is negative. Risk Assessment: Do you want to hurt yourself or someone else? Patient reports no desire to harm self or others. Onset of symptoms was December 01, 2023. 08:25 Method Of Arrival: Ambulatory ap3 08:25 Acuity: KRISTEL 4 ap3 Triage Assessment: 08:29 General: Appears in no apparent distress. Behavior is calm, cooperative, appropriate ap3 for age. Pain: Complains of pain in left low back. Neuro: Level of Consciousness is awake, alert, obeys commands, Oriented to person, place, time, situation. Cardiovascular: Patient's skin is warm and dry. Respiratory: Airway is patent Respiratory effort is even, unlabored, Respiratory pattern is regular, symmetrical. Derm: Wound noted left low back. 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 - Social history:: Smoking status: Patient reports the use of cigarette tobacco products, denies chronic smoking, but will smoke occasionally. Screenin:29 [facility] ED Fall Risk Assessment (Adult) History of falling in the last 3 months, ap3 including since admission No falls in past 3 months (0 pts) Confusion or Disorientation No (0 pts) Intoxicated or Sedated No (0 pts) Impaired Gait No (0 pts) Mobility Assist Device Used No (0 pt) Altered Elimination No (0 pt) Score/Fall Risk Level 0 - 2 = Low Risk Oriented to surroundings, Maintained a safe environment, Educated pt \T\ family on fall prevention, incl call for assistance when getting out of bed, Assessed \T\ reinforced patient's understanding of fall precautions, Provided non-skid footwear, Hourly rounding (assess needs \T\ fall precautionary measures) done, Used ambulatory aids as needed (educated on \T\ assisted with), Used gait belt as appropriate. Abuse screen: Denies threats or abuse. Nutritional screening: No deficits noted. Tuberculosis screening: No symptoms or risk factors identified. Vital Signs: 08:25 BP 150 / 88; Pulse 62; Resp 18; Temp 98.5(O); Pulse Ox 99% ; ap3 08:30 Weight 99.79 kg; Height 5 ft. 4 in. ; Pain 7/10; ap3 08:30 Body Mass Index 37.76 (99.79 kg, 162.56 cm) ap3 08:30 Pain Scale: Adult ap3 ED Course: 08:12 Patient arrived in ED. mr 08:19 Hunter Vital MD is Attending Physician. ec2 08:28 Triage completed. ap3 08:29 Arm band placed on left wrist. ap3 08:30 Patient has correct armband on for positive identification. ap3 08:30 Provided Education on: antibiotic use. ap3 08:30 Patient did not have IV access during this emergency room visit. ap3 08:30 No provider procedures requiring assistance completed. ap3 Administered Medications: No medications were administered Medication: 08:30 VIS not applicable for this client. ap3 Outcome: 08:32 Discharge ordered by . ec2 08:38 Discharged to home ambulatory, ap3 08:38 Condition: good 08:38 Discharge instructions given to patient, Instructed on discharge instructions, follow up and referral plans. medication usage, Demonstrated understanding of instructions, follow-up care, medications, Prescriptions given X 2, 08:39 Patient left the ED. ap3 Signatures: Darlene Díaz, Reg Reg mr Fela Kulkarni, RN RN ap3 Hunter Vital MD MD ec2
--- NOTE | 2023-12-08 08:33 | EDPHYS ---
Physician Documentation [facility] Name: Kimmy Hernandez Age: 48 yrs Sex: Female : 1975 Arrival Date: 12/08/2023 Time: 08:09 Bed DX3 Private MD: ED Physician Hunter Vital HPI: 12/07 08:34 This 48 yrs old Female presents to ER via Ambulatory with complaints of ec2 Abscess. 08:34 Patient arrives today for evaluation of pain and swelling to the left back. Patient ec2 complaining of swelling and discomfort for the past several days. Patient reports no fevers or chills, no nausea or vomiting. Patient denies any systemic symptoms. Patient reports no spinal cord issues such as paralysis. Patient states that the pain is just left of midline in the mid back. Denies any previous back surgeries or medical history.. 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 - Social history:: Smoking status: Patient reports the use of cigarette tobacco products, denies chronic smoking, but will smoke occasionally. ROS: 08:34 Constitutional: as per hpi ec2 Exam: 08:34 Constitutional: GEN: NAD Head: atraumatic Eyes: EOMI Ears: External ears are ec2 normal. CV: regular rate LUNGS: no respiratory distress ABD: non-distended SKIN: Induration without fluctuance noted to the left mid back, paraspinal region. Associated erythema, no significant warmth. No purulence, no drainage noted. MSK: no evidence of trauma NEURO: moves all extremities equally Vital Signs: 08:25 BP 150 / 88; Pulse 62; Resp 18; Temp 98.5(O); Pulse Ox 99% ; ap3 08:30 Weight 99.79 kg; Height 5 ft. 4 in. ; Pain 7/10; ap3 08:30 Body Mass Index 37.76 (99.79 kg, 162.56 cm) ap3 08:30 Pain Scale: Adult ap3 MDM: 08:31 Patient medically screened. ec2 08:34 Data reviewed: vital signs. ED course: Patient arrives today for evaluation of pain and ec2 discomfort in the mid back. Examination remarkable for skin findings as above. Clinically presentation consistent with cellulitis with associated induration. No presents of fluctuance on examination, doubt abscess and do not feel that this would benefit from an incision and drainage. Additionally patient without systemic signs symptoms to indicate an overwhelming infection. Clinically infection is superficial. Will treat with antibiotics and have patient follow-up with primary care doctor as needed and will prescribe patient Tylenol with codeine to control the patient's pain. Patient discharged home. Return precautions given.. Administered Medications: No medications were administered Disposition Summary: 12/08/23 08:32 Discharge Ordered Notes: Location: Home ec2 Condition: Stable ec2 Diagnosis - Cellulitis of back [any part except buttock] ec2 Followup: ec2 - With: Private Physician - When: - Reason: Re-evaluation by your physician Discharge Instructions: - Discharge Summary Sheet ec2 - Cellulitis, Adult ec2 Forms: - Medication Reconciliation Form ec2 - Antibiotic Education ec2 - Prescription Opioid Use ec2 - Patient Portal Instructions ec2 - Leadership Thank You Letter ec2 Prescriptions: - acetaminophen-codeine 300-15 mg Oral tablet - take 1 tablet ORAL route every 8 hours; 10 tablet; Refills: 0, Product ec2 Selection Permitted - Bactrim DS 800-160 mg Oral Tablet - take 1 tablet ORAL route every 12 hours for 7 days; 14 tablet; Refills: 0, ec2 Product Selection Permitted Signatures: Fela Kulkarni RN RN ap3 Hunter Vital MD MD ec2
[2023-12-08 08:55] VITALS: BP 150/88; TEMP 98.5; O2SAT 99
== END 2023-12-08 08:39 | disposition home or self-care (01) ==
LOC: ER 08:09
DX: L03.312 Cellulitis of back [any part except buttock and flank] (principal)